=== PATIENT | male | born 1955 | race Caucasian/White ===

== ENCOUNTER 2016-06-18 16:23 | Emergency (ER) | payer BC ==
[~2016-06-18] VITALS: Ht 172.7 cm; Wt 86.0 kg
[2016-06-18 16:24] VITALS: BP 155/87
[2016-06-18 17:19] LABS: INFLUENZA VIRUS TYPE A ANTIBOD Negative (NEGATIVE); INFLUENZA VIRUS TYPE B ANTIBOD Negative (NEGATIVE)
[2016-06-18] MEDS ORDERED: ED- AZITHROMYCIN 250 MG (ZITHROMAX) 3 TABLETS/BTL PO ONE (17:50)
[2016-06-18] MEDS ORDERED: ED- PROMETHAZINE/CODEINE SYRUP 6.25MG-10MG/5 ML (PHENERGAN) 118 ML BTL PO ONE (18:05)
== END 2016-06-18 18:14 | disposition home or self-care (01) ==
LOC: ED 16:24
DX: J20.9 Acute bronchitis, unspecified (principal)
CPT/HCPCS: 71020; 87502; 99282; 99283